=== PATIENT | female | born 1970 | race African-American/Black ===

== ENCOUNTER 2018-04-29 15:19 | Outpatient (CLI) | payer BC ==
[2018-04-29 16:00] LABS: Hemoglobin 11.8 g/dL (12.0-16.0); Mean Corpuscular HGB CONC 33.1 g/dL (32.0-36.0); Mean Corpuscular Hemoglobin 24.5 pg (27.0-31.0); Mean Platelet Volume 8.3 fL (7.4-10.4); Platelet Count 301 thou/uL (130-400); RBC Distribution Width 17.5 % (11.5-14.5); Red Blood Cell (RBC) Count 4.82 mill/uL (4.20-5.40); White Blood Cell (WBC) Count 4.8 thou/uL (4.8-10.8)
[2018-04-29 16:10] LABS: BHCG - Serum Negative (NEGATIVE); Pregs Control Background? CLEAR/WHITE (CLR/WHITE); Pregs Control Bar Appear? YES (CONTROL BAR)
== END 2018-04-29 15:20 | disposition home or self-care (01) ==
LOC: LABBT 15:19
PROVIDERS: ATTEND Student in an Organized Health Care Education/Training Program
DX: Z01.812 Encounter for preprocedural laboratory examination (principal); N92.6 Irregular menstruation, unspecified; R10.2 Pelvic and perineal pain; N92.0 Excessive and frequent menstruation with regular cycle; D21.9 Benign neoplasm of connective and other soft tissue, unspecified
CPT/HCPCS: 84703; 85027; 86850; 86900; 86901

== ENCOUNTER 2018-04-30 06:35 | Inpatient (IN) | payer BC ==
[2018-04-29 15:51] VITALS: BMI 23.3
[2018-04-30] MEDS ORDERED: Midazolam HCl 2 mg/2 ml Vial ONE ×2 (06:41→07:24)
[2018-04-30] MEDS ORDERED: Fentanyl 250 MCG/5 ML VIAL ONE (06:41)
[2018-04-30] MEDS ORDERED: CeleCOXIB 100 MG CAP ONE (06:43)
[2018-04-30] MEDS ORDERED: Famotidine/PF 20 mg/2ml Vial ONE (06:43)
[2018-04-30] MEDS ORDERED: Gabapentin 300 MG CAP ONE (06:43)
[2018-04-30] MEDS ORDERED: CEFAZOLIN/Water 2 GM/20 ML SYRINGE ONE (06:44)
[2018-04-30] MEDS ORDERED: Bupivacaine HCl 0.5%/Epinephrine 1:200,000/PF 30 ml Vial ONE (07:06)
[2018-04-30] MEDS ORDERED: Bupivacaine HCl 0.25%/Epi 0.0005/PF 10 ML VIAL FS ONE ×2 (11:44→11:56)
[2018-04-30] MEDS ORDERED: Simethicone Chewable 80 MG TAB PO PRN (11:53)
[2018-04-30] MEDS ORDERED: diphenhydrAMINE 25 MG CAP PO PRN (11:53)
[2018-04-30] MEDS ORDERED: HYDROcodone/Acetaminophen 5/325 mg Tablet PO PRN ×2 (11:53)
[2018-04-30] MEDS ORDERED: Zolpidem Tartrate 5 MG TAB PO PRN (11:53)
[2018-04-30] MEDS ORDERED: Ondansetron HCl/PF 4 MG/2 ML Vial IVP PRN ×2 (11:53→12:13)
[2018-04-30] MEDS ORDERED: Acetaminophen 325 MG TAB PO PRN (11:53)
[2018-04-30] MEDS ORDERED: Promethazine HCl 25 MG/ML VIAL IM PRN ×2 (11:53→12:13)
[2018-04-30] MEDS ORDERED: Bisacodyl 10 MG SUPP PR PRN (11:53)
[2018-04-30] MEDS ORDERED: Ropivacaine 0.2% 550 ML 550 ML NERVE BLCK SCH (12:00)
[2018-04-30] MEDS ORDERED: Promethazine HCl 25 MG/ML VIAL SLOW IVP PRN (12:13)
[2018-04-30] MEDS ORDERED: Meperidine HCl/PF 25 MG/ML VIAL SLOW IVP PRN (12:13)
[2018-04-30] MEDS ORDERED: Metoclopramide HCl 10 MG/2 ML VIAL ONE (12:58)
[2018-04-30] MEDS ORDERED: PHENYLEPHRINE-NS 100 MCG/ML 10 ML SYRINGE ONE (12:58)
[2018-04-30] MEDS ORDERED: Ondansetron HCl/PF 4 MG/2 ML Vial ONE (12:58)
[2018-04-30] MEDS ORDERED: Glycopyrrolate 0.2 MG/ML 5 ML SYRINGE ONE ×2 (12:58)
[2018-04-30] MEDS ORDERED: Esmolol 100 MG/10 ML VIAL ONE (12:58)
[2018-04-30] MEDS ORDERED: PROPOFOL 200 MG/20 ML VIAL ONE (12:58)
[2018-04-30] MEDS ORDERED: Lidocaine 1% PF 5 ML VIAL ONE (12:58)
[2018-04-30] MEDS ORDERED: Meperidine HCl/PF 25 MG/ML VIAL ONE (13:29)
[2018-04-30] MEDS: Lactated Ringer's 1,000 ML IV SCH ×2 (15:09→21:58)
[2018-04-30] MEDS: Ketorolac Tromethamine 30 MG/ML VIAL IVP SCH ×2 (15:09→19:37)
--- NOTE | 2018-04-30 18:26 | OP ---
DATE OF OPERATION: 04/30/2018 PREOPERATIVE DIAGNOSES: 1. Uterine fibroids. 2. Menometrorrhagia. 3. Anemia. 4. Pelvic pain. POSTOPERATIVE DIAGNOSES: 1. Uterine fibroids. 2. Menometrorrhagia. 3. Anemia. 4. Pelvic pain. PROCEDURES PERFORMED: Robotic-assisted total laparoscopic hysterectomy, bilateral salpingectomy, rig ht ureterolysis and extracorporeal morcellation. ANESTHESIA: General endotracheal. ATTENDING SURGEON: Anika Torres M.D. PSYCHIATRY PHYSICIAN SURGEON: Aaliyah Myles M.D. ESTIMATED BLOOD LOSS: 150 mL INTRAVENOUS FLUIDS: 1800 mL crystalloid. URINE OUTPUT: 60 mL of clear concentrated urine. COMPLICATIONS: None. DRAINS: King catheter and ON-Q catheter. PATHOLOGY: Uterus, cervix, bilateral fallopian tubes. FINDINGS: On exam under anesthesia, a mobile 20-week multifibroid uterus was noted that sounded to 1 6 cm. Cervix was normal appearing as well as the vagina. On intraabdominal survey, the uterus had m ultiple fibroids, was a very broad and bulky especially in the superior fundal aspect. The ovaries a nd fallopian tubes were normal bilaterally. There were no adhesions. The ureter on the right side w as intimately involved in the uterine pedicle at the level of the internal cervical os that necessita marsha right ureterolysis. The ureter was visible during the entire case, vermiculating, and was dissec marsha well away from the area of operation and the left ureter was noted to be running in the pelvic si de wall, well away from the left uterine pedicles and vaginal cuff angle. OPERATIVE TECHNIQUE: The patient was taken to the operating room where general anesthesia was obtain ed without difficulty. The patient was prepped and draped in a sterile fashion in the dorsal lithoto my position. Dr. Monsalve initially opened just superior to the umbilicus approximately 12 mm and ins ufflated the abdomen and placed a 12 mm trocar as he was planning on a hernia repair following the pr ocedure. I placed a King catheter in the bladder and a speculum in the vagina and the anterior lip of the cervix was grasped with single tooth tenaculum. Uterus then sounded to 16 cm and the cervix w as progressively dilated with Hiram dilators. The BRITNEY manipulator was assembled with a 12 cm tip and a 4 cm colpotomizer ring. The tip was inserted into the uterus and balloon inflated. The speculum was removed out of the vagina and the colpotomizer ring was advanced to fit snugly around the cervix and the vaginal occluder balloon was placed. Legs were placed in low lithotomy, attention was turned to the abdomen. The 12 mm scope was passed through the camera port and the pelvis was visualized an d completely filled with the enlarged fibroid uterus. Steep Trendelenburg was obtained. A 12 mm tro car was then removed out the umbilicus and the incision was extended to accommodate the 2.5 cm mini G elpoint including the fascial incision. The mini Jerald was then placed into this incision and cinch ed down. A 12 mm trocar was placed through the mini Gelpoint and then affixed to the Jerald. Pneumo peritoneum was re-established. A right upper quadrant 11 mm port was placed for an lpn medical assistant port af ter infiltrating with 0.5% Marcaine with epinephrine. Right and left lower quadrant 8 mm robotic tro cars were placed under direct visualization after infiltrating with 0.5% Marcaine with epinephrine. The robot was then docked to right robotic arm contained the monopolar scissors. The left robotic ar m contained a fenestrated bipolar. The right fallopian tube was grasped and elevated and the mesosal pinx was sequentially cauterized and transected until the uterine cornua was met. The fallopian tube was clamped across, cauterized, transected and removed out of the abdomen. At this point, there was difficulty with the right arm and each time the right arm was moved, this would bump up against the patient's knee. It was found that the patient had slid on the bed superiorly and to avoid inadverten t injury to the patient or undue stress on the robot, the robot was undocked and the patient was move d back down on the bed and then the robot was re-docked. Steffen Wrap was placed across the patient's ch est to prevent her from sliding. She was already placed on the pink pad underneath her. Once this w as completed, the utero-ovarian on the right side was clamped and cauterized multiple times and trans ected and taken down. The uterus was so broad and bulky that it was difficult to manipulate to one s [place] or the other, and essentially filled the entire pelvis and once visualization was achieved of thi s posterior leaf off of the utero-ovarian ligament, this was incised and the mesovarium was dissected through. The round ligament was then reached and this was clamped across and cauterized. There was a very short distance from the uterus to the pelvic sidewall and the iliac vessels were noted very c lose by and care was taken not to enter into these structures. The round ligament was transected aft er cautery and this opened up the anterior and posterior leaf. Posteriorly, visualization was diffic ult secondary to the bulkiness of the uterus. There was some visualization anteriorly. I was able t o undermine the anterior leaf with the fenestrated and incised with the scissors on top of that ensur ing a clear window. This was taken down to the level of the bladder flap and anteriorly visualizatio n became improved and the bladder flap was able to be developed by scoring on the pubocervical fascia and dissecting the adventitial fibers below the level of the colpotomizer ring ensuring a clear wind ow and no bladder nearby. Continued dissection laterally near the pedicle was performed on the right side. There was a tubular structure on the right side and initially was thought to be of a vessel; however, during observation, this structure did peristalse and was determined to be the ureter intima tely involved with the uterine pedicle at the level of the cervical os. At this time, I knew that th e structure needed to be dissected out, the ureter was traced back to the pelvic brim and it was loca marsha where the ureter was coming from the pelvic sidewall and entering into trouble down the side of t he uterus. Again manipulation was difficult secondary to the bulk of the uterus and the heaviness of it and visualization was difficult. There was slight oozing from just the lateral portion on the ri ght side of the uterus and it was difficult to get the fenestrated to that side and at that time, a d ecision was made to dock the third arm on the robot. The bipolar fenestrated was moved to this new 8 mm port that laid in between the camera and the lateral port on the left side and a ProGrasp was the n placed on the most lateral port as the third arm instrument. The ProGrasp was then used to retract the uterus over to the left lower quadrant, so that the retroperitoneal dissection could take place safely. Irrigation was performed and hemostasis was achieved of the lateral side of the uterus. The re was not an excessive amount of bleeding. The ureter was identified and using blunt dissection on a spotting technique with the fenestrated was located and dissected out. Upon needing to cauterize v essels, the ureter was then elevated out of the field scooping it with the scissors and allowing to p revent any thermal damage from cautery that would happen in proximity to the ureter. The retroperito violet fibers surrounding the ureter were mainly bluntly dissected. There was some vascular structures that were cauterized with the ureter was unroofed; however, the lateral retroperitoneal fibers with the vascular structures were allowed to be left intact so as to prevent devascularization of the uret er. The ureter was then running into a tunnel and below the uterine vessels, thus the area was locat ed. These vessels were clamped and cauterized putting traction posteriorly on the ureter and they we re cauterized and transected that allowed the uterine pedicle to fall away. At that point, attention was turned to the patient's left side where the left utero-ovarian and fallopian tube at the cornua were clamped across, cauterized with the fenestrated and transected with the scissors as well as the round ligament. This side was not quite as bulky and visualization was easier in the patient's right side. Once the round ligament was transected, the posterior leaf of the broad ligament was dropped down and the uterus was able to be anteverted and in order to do this, the ureter was identified on t he left side and noted to be running in the pelvic sidewall well away from the lateral sides of the u terus. Retroperitoneal dissection and skeletonization of the vessels was performed on the left side and the bladder flap was completely developed across the entire area with scissors and cauteriz ing any bladder pillars or vascularity. The anterior colpotomy was then performed and carried around to the left uterine pedicle. The uterine artery and vein was clamped just above the level of the in ternal cervical os and cauterized and subsequently transected. The fenestrated was then slipped unde rneath these pedicles to cauterize and allow for an improved hemostasis and subsequently transected. This was taken around posteriorly as far as visibility was acceptable, which encompasses the uterosa cral ligament on the left side. The right side was then further examined. The anterior colpotomy wa s performed around to the right pedicle. The ureter was still running right on top of the cervix at the level of the internal os; however, the majority of the dissection had performed from the lateral pelvic sidewall down to that point and some of the adventitial fibroids close to the uterus were inci sed and this allowed the ureter to drop away laterally from this internal cervical os that needed to be incised. Following adequate ureterolysis, the vessels on the right side were clamped, cauterized, and transected and the colpotomy was carried around laterally and subsequently posteriorly. The [place] rosacral ligament was incised on the right side and this was hemostatic with the fenestrated and suzan pulating the uterus around that was much more easy to manipulate at this point allowed for complete t ransection of the uterus. The BRITNEY manipulator was then removed out of the uterus. The uterus was p laced into the upper abdomen and irrigation of the pelvis was performed and hemostasis was achieved o f the vaginal cuff. Throughout the entire course of the surgery, the right ureter on the right side was visible and noted to be vermiculating during the entire time and did not sustain any injury. The scissors were traded out for the needle class a truck driver. The vaginal cuff was repaired with a #2-0 barbed PD S suture in a running fashion with incorporating the pubocervical fascia, vaginal mucosa and posterio r peritoneum in each bite. This was ran back x1 and hemostasis and closure was noted to be excellent . The needle was then removed out of the abdomen. Irrigation was again performed at the vaginal cuf f and the pelvic sidewalls and hemostasis was noted. Lynn powder was then placed over the operativ e site and the ON-Q intraperitoneal catheter was threaded through in the mid lower abdomen and placed in the pelvis. At that time, the large [employer] bag was brought down into the pelvis. The u terus was fixed on top of the bag. The sutures were cut that were plicating the bag together and all owed the uterus to drop directly into the bag. The drawstring mechanism that we made for the bag was then cinched down to allow to secure the specimen in the bag and this was brought out and secured of the mini Gelpoint. The ON-Q catheter was then again examined and ensured a correct placement. At t his time, the robot was undocked and all instruments were removed out of the abdomen. Pneumoperitone um was released and the mini Gelpoint was removed and the bag was brought down to the umbilical incis ion. The mini Jerald was then removed and placed on the inside of the bag and the uterus was grasped with a Rafi clamp and contained morcellation was performed using a C-incision technique and this to ok approximately 30 minutes. Once the uterus was completely removed out of the bag and the abdomen, the Jerald and bag were removed. No defects were noted in the bag. The umbilical incision was irrig ated and the port sites were closed with 4-0 Monocryl in a subcuticular fashion. The umbilical incis ion remained open to allow Dr. Monsalve to perform his umbilical hernia repair. He was also going to repair a lipoma removal at the same time. Vaginal cuff was checked and noted to have excellent closu re and hemostasis was noted. The patient tolerated the procedure well. Sponge, lap and needle count s were correct x2. The patient was taken to recovery room in stable condition. Patient received Anc ef 2 grams prior to the procedure. Please see Dr. Monsalve dictation for umbilical hernia and lipoma removal details.
[2018-04-30] MEDS: Docusate Calcium (SURFAK) 240 MG CAP PO SCH (23:11)
[2018-05-01] MEDS: Ketorolac Tromethamine 30 MG/ML VIAL IVP SCH ×2 (00:57→06:07)
[2018-05-01] MEDS ORDERED: Ibuprofen 800 MG TAB PO SCH (06:00)
[2018-05-01 06:23] VITALS: TEMP 98.4
[2018-05-01 06:26] LABS: Hemoglobin 9.5 g/dL (12.0-16.0); Mean Corpuscular HGB CONC 32.7 g/dL (32.0-36.0); Mean Corpuscular Hemoglobin 24.6 pg (27.0-31.0); Mean Corpuscular Volume 75.3 fL (78.0-98.0); Mean Platelet Volume 8.3 fL (7.4-10.4); Platelet Count 209 thou/uL (130-400); RBC Distribution Width 17.7 % (11.5-14.5); Red Blood Cell (RBC) Count 3.86 mill/uL (4.20-5.40); White Blood Cell (WBC) Count 8.2 thou/uL (4.8-10.8)
[2018-05-01] MEDS: Lactated Ringer's 1,000 ML IV SCH (06:34)
[2018-05-01] MEDS: Docusate Calcium (SURFAK) 240 MG CAP PO SCH (07:51)
[2018-05-01 09:16] VITALS: BP 119/79
--- NOTE | 2018-05-02 08:11 | PQF ---
BELLE MENDOZA JANELLE [id number] [address] [place] [address] [id number] CLINICAL DOCUMENTATION CLARIFICATION FORM: POST DISCHARGE Addendum to original discharge summary date: ____ Late entry note date: __ Please exercise your independent, professional judgment in responding to the clarification form. Clinical indicators are provided on the bottom of this form for your review Please check appropriate box(s): [ ] Acute blood loss anemia [ ] Chronic blood loss anemia [ ] Anemia: [ ] Aplastic [ ] Nutritional [ ] Drug induced (specify) ___ [ ] Hemolytic [ ] Hereditary [ ] Acquired [ ] Autoimmune [ ] Non-autoimmune [ ] Enzyme disorder [ ] Chronic Anemia: [ ] Hemolytic [ ] Simple [ ] Due to Vitamin B12 Deficiency [ ] Other [ ] Anemia of Chronic Disease (please specify) [ ] Other diagnosis [ ] Unable to determine In addition, please specify: Present on Admission (POA): [ ] Yes [ ] No [ ] Unable to determine For continuity of documentation, please document condition throughout progress notes and discharge summary. Thank You. CLINICAL INDICATORS - SIGNS / SYMPTOMS / LABS irregular menstruation Anemia documented Low hemoglobin and/or hematocrit RISK FACTORS irregular menstruation Surgery TREATMENTS: hysterectomy fluids (This form is maintained as a part of the permanent medical record) 2014 [employer]. All Rights Reserved [email or web address] [phone] GILBERTO
--- NOTE | 2018-05-02 21:45 | OP ---
DATE OF PROCEDURE: 04/30/2018 PREOPERATIVE DIAGNOSIS: Umbilical hernia. POSTOPERATIVE DIAGNOSIS: Umbilical hernia. OPERATION PERFORMED: Umbilical hernia repair (under same anesthetic with robotic hysterectomy). SURGEON: Epi Monsalve M.D. ANESTHESIA: General endotracheal. INDICATIONS: The patient is a 48-year-old black female. She has an obvious umbilical hernia. She i s undergoing robotic hysterectomy secondary to multiple fibroid tumors. She has requested umbilical hernia repair under the same anesthetic. Because of the associated gynecologic procedure, I have rec ommended repairing this without mesh. DESCRIPTION OF OPERATION: Informed consent was obtained. The patient was taken to the operating sudhakar m where general endotracheal anesthesia was obtained with the patient in supine position. Abdomen wa s prepped with ChloraPrep and draped in sterile fashion. Attention was turned first to the umbilicus . Local anesthetic was infiltrated with 0.25% Marcaine with epinephrine. Transverse supraumbilical incision was created. Dissection was carried through skin and subcutaneous tissue. Dissection was t hen carried inferiorly down into the hernia sac. Through the hernia defect, I passed a 12-mm laparos copic port. Insufflation was passed through this to obtain a pneumoperitoneum. The operation then continued per Dr. Torres. At the conclusion of her procedure, the patient was in stable condition following her robotic hysterectomy. The incision had been extended somewhat at both the level of the fascia and the skin to allow the danilo rine extraction. The fascia was closed using a series of [id number] sutures of 0 Prolene. The underside of the umbilicus was debrided from the chronic hernia sac. Umbilicoplasty was then perform ed with 2 interrupted sutures of 3-0 Vicryl. The wound was then closed in the layers with 3-0 and 4- 0 Monocryl. Dermabond was placed externally. A compression dressing was then affected utilizing cot ton balls and a Tegaderm dressing. There were no complications. The patient tolerated the procedure well and was taken to recovery room in stable condition. The remaining robotic ports per Dr. Pita vital had been sealed externally with Dermabond as well.
[2018-05-05] MEDS ORDERED: Ibuprofen 800 MG TAB PO SCH (22:00)
== END 2018-05-01 11:45 | disposition home or self-care (01) | DRG 743 ==
LOC: SDC 06:35 → 3SE 14:47
PROVIDERS: ADMIT Student in an Organized Health Care Education/Training Program; ATTEND Student in an Organized Health Care Education/Training Program
PROC: 0UT94ZZ Resection of Uterus, Percutaneous Endoscopic Approach (ICD-10-PCS; principal; 2018-04-30)
PROC: 0UT74ZZ Resection of Bilateral Fallopian Tubes, Percutaneous Endoscopic Approach (ICD-10-PCS; 2018-04-30)
PROC: 0TN64ZZ Release Right Ureter, Percutaneous Endoscopic Approach (ICD-10-PCS; 2018-04-30)
PROC: 0WQF4ZZ Repair Abdominal Wall, Percutaneous Endoscopic Approach (ICD-10-PCS; 2018-04-30)
PROC: 8E0W4CZ Robotic Assisted Procedure of Trunk Region, Percutaneous Endoscopic Approach (ICD-10-PCS; 2018-04-30)
PROC: 0JB80ZZ Excision of Abdomen Subcutaneous Tissue and Fascia, Open Approach (ICD-10-PCS; 2018-04-30)
DX: D25.1 Intramural leiomyoma of uterus (principal); N92.6 Irregular menstruation, unspecified; N28.89 Other specified disorders of kidney and ureter; D17.1 Benign lipomatous neoplasm of skin and subcutaneous tissue of trunk; K42.9 Umbilical hernia without obstruction or gangrene; D64.9 Anemia, unspecified
CPT/HCPCS: 36415; 85027; 88304; 88307; A4306; J0670; J1885; J2001; J2175; J2250; J2405; J2704; J2765; J2795; J3010; S0028